=== PATIENT | female | born 2000 | race Caucasian/White ===

== ENCOUNTER 2020-07-01 21:51 | Emergency (ER) | payer OTHER ==
[~2020-07-01] VITALS: Ht 162.6 cm; Wt 118.2 kg
[2020-07-01 21:56] VITALS: TEMP 96.6
[2020-07-01 23:27] LABS: COLLECTION METHOD CLEAN CATCH
[2020-07-01 23:33] LABS: MUCOUS Present /lpf; PH 5 (5-8); SQUAMOUS EPITHELIAL 0-2 /hpf; URINE APPEARANCE Hazy; URINE BACTERIA None Seen /hpf; URINE BILIRUBIN Negative (NEGATIVE); URINE BLOOD Negative (NEGATIVE); URINE COLOR Yellow; URINE GLUCOSE Negative (NEGATIVE); URINE KETONE Trace (NEGATIVE); URINE LEUKOCYTE ESTERASE Trace (NEGATIVE); URINE NITRATE Negative (NEGATIVE); URINE PROTEIN(semi-quant) Negative (NEGATIVE); URINE RBC 0-2 /hpf; URINE UROBILINOGEN Negative (NEGATIVE)
[2020-07-02 01:25] LABS: BASO # 0.1 (0.0-0.2); BASO % 0.5 % (0.0-2.0); EOS # 0.1 (0.0-0.7); EOS % 0.3 % (0-4.0); GRAN # 12.8 (1.4-6.5); GRAN % 84.9 % (42.2-75.2); HEMATOCRIT 42.4 % (37.0-47.0); LYMPH # 0.8 (1.2-3.4); LYMPH % 5.3 % (20.0-51.0); MEAN CELL VOLUME 91 fl (80.0-100.0); MEAN CORPUSCULAR HEMOGLOBIN 30 pg (27.0-31.0); MEAN CORPUSCULAR HGB CONC 33 g/dl (33.0-37.0); MEAN PLATELET VOLUME 10.1 fl (7.4-10.4); MONO # 1.3 (0.1-0.6); MONO % 8.6 % (1.7-9.3); PLATELET COUNT 204 K/mm3 (130-400); RED BLOOD COUNT 4.65 M/mm3 (4.10-5.30); REDCELL DISTRIBUTION WIDTH-CV 12.5 % (11.5-14.5)
[2020-07-02 01:36] LABS: ALBUMIN 3.8 gm/dL (3.5-5.0); BILIRUBIN,TOTAL 0.3 mg/dL (0.0-1.0); CALCIUM 8.2 mg/dL (8.4-10.2); CREATININE, serum 0.64 (0.52-1.25); POTASSIUM 4.6 mmol/L (3.4-5.0)
[2020-07-02 03:00] VITALS: BP 117/78; PULSE 105
== END 2020-07-02 03:10 | disposition home or self-care (01) ==
LOC: COL.ER 21:51
PROVIDERS: Physician Assistant
DX: K52.9 Noninfective gastroenteritis and colitis, unspecified (principal); Z32.02 Encounter for pregnancy test, result negative
CPT/HCPCS: J2060; J2405; J7030